=== PATIENT | female | born 1985 | race Caucasian/White ===

== ENCOUNTER 2016-06-27 09:45 | Emergency (ER) | payer OTHER ==
[2016-06-27 10:01] VITALS: BP 128/91; PULSE 106; RESP 16; O2SAT 98
--- NOTE | 2016-06-27 10:08 | ED.REPORT ---
HPI-Rash / Abscess Date of Service Jun 27, 2016 ED Provider: Rachel Palm MD 30 year old female presents to the ER complaining of diffuse hives and itching onset last night around 19:00 while at work. She has lately been on antibiotics to treat a dental infection. Initially she was on a course of amoxicillin for 15 days, followed by a course of penicillin for 10 days, currently /4 finished. Associated symptoms include mild tongue and lip tingling. Patient denies tongue/throat swelling, and difficulty breathing. Symptoms have been treated with Benadryl with no relief. Nursing Notes Stated Complaint: RASH ALL OVER BODY Chief Complaint: Allergic Reaction Nursing Notes Reviewed: Yes Allergies: Coded Allergies: No Known Allergies (Unverified , 06/27/16) Scheduled Prednisone (PredniSONE) 20 Mg Tablet 40 MG PO DAILY 40MG ON 06/28 AND 06/29 General Time Seen by MD: 10:07 Chief Complaint Rash Hx Obtained From: Patient Arrived By: Walk-in Onset Occurred: Yesterday Symptom Duration: Since onset Location: : Generalized Quality: Itching Severity: Current: Moderate Severity: Maximum: Moderate Pertinent Negative: Pt denies other symptoms Similar Sx Previous: No Past Medical History Smoking History Unknown if Ever Smoker Ambulatory Status Independent Review of Systems Review of Systems Note: +Lip/Tongue tingling Ears / Nose / Throat: Denies: Throat swelling, Tongue swelling Respiratory: Denies: Shortness of breath, Wheezing Allergy / Immune: Reports: Allergic reaction, Hives, Itching, Denies: Anaphylaxis Complete sys rev & neg: except as marked. Physical Exam Initial Vital Signs Vital Signs (First) Date Time Temp Pulse Resp B/P Pulse Ox O2 Delivery O2 Flow Rate FiO2 06/27/16 10:01 37.1 106 16 128/91 98 Room Air Initial VS: Reviewed Head / Eyes: Atraumatic, Normocephalic Neck: Supple, Non-tender, Full range of motion Abdomen / GI: Soft, Non-tender, No guarding, No rebound, No distention Extremities: Vascular intact, Neuro intact, No swelling, No tenderness Neurologic: Alert, Oriented, Nonfocal General/Constitutional: Awake, Alert, Well developed, Well nourished Appearance / Presentation: Positive: Obese Skin: Warm, Dry, Intact Color / Condition: Positive: Rash present Rash / Lesion Notes: Generalized hives, worse on the torso. ENT: Airway patent, Mucous membranes moist, Pharynx NL Minor lower lip swelling. No tongue or throat swelling. Respiratory / Chest: Breath sounds NL, Breath sounds = bilat, No respiratory distress, No rales, No rhonchi, No wheezing Cardiovascular: Heart rate NL, Regular rhythm, Heart sounds NL, Peripheral circulation NL Re-Eval/Medical Decision Re-Evaluation/Progress : Time of Eval: 10:12 Re-Evaluation/Progress Note: Discussed physical examination findings and plan to discharge. Patient is amenable to the plan. Return precautions given. All other questions addressed. Counseled Regarding: Diagnosis, Need for follow-up, When/why to return to ED Discharge & Departure Impression: Primary Impression: Acute allergic reaction Disposition: Home Discharge Condition All VS Reviewed: Yes Condition: Stable Patient Instructions: Antibiotic Medication Allergy (DC) Additional Instructions: Take Prednisone for the next 3 days to decrease the allery symptoms. You were given 60mg in the ER and will need 40mg on 06/28 and 06/29. Use Benadryl, 1-2 pills as needed if you are itchy at night or have difficulty sleeping. Use a long acting allery pill, ex:Claritin, zyrtec, allega, daily for the next week. Return to the ER if you experience worsening symptoms, tongue/throat swelling, difficulty breathing, or any other concerning symptoms. NO MORE PENICILLINS FOR YOU! Referrals: Zane Olguin Attestation Portions of this note were transcribed by Brien Wilks. I, Dr. Palm, personally performed the history, physical exam and medical decision-making; I reviewed and confirmed the accuracy of the information in the transcribed note. Signed by: Eugenio Salinas, 06/27/2016 and 10:30 copies to: Zane Olguin Shawna L MD Jun 27, 2016 10:08 BRIEN WILKS Jun 27, 2016 10:19
[2016-06-27] MEDS ORDERED: predniSONE 20 mg Tablet PO ONE (10:20)
[2016-06-27] MEDS ORDERED: PRE20 PO (10:26)
== END 2016-06-27 10:28 | disposition home or self-care (01) ==
LOC: SED 09:45
DX: L50.9 Urticaria, unspecified (principal); L29.9 Pruritus, unspecified; T36.0X5A Adverse effect of penicillins, initial encounter; X58.XXXA Exposure to other specified factors, initial encounter; Y93.89 Activity, other specified; Y92.9 Unspecified place or not applicable; Y99.8 Other external cause status; Z88.0 Allergy status to penicillin

== ENCOUNTER 2016-07-01 09:33 | Emergency (ER) | payer OTHER ==
[~2016-07-01] VITALS: Ht 172.7 cm; Wt 120.0 kg
[~2016-07-01 09:33] MED LIST: PRE20 PO
[2016-07-01 09:48] VITALS: BP 168/116; PULSE 102; RESP 18; O2SAT 97
--- NOTE | 2016-07-01 12:36 | ED.REPORT ---
HPI-Allergic Reaction Date of Service Jul 01, 2016 ED Provider: Katharine Logan History of Present Illness: allergic rx to pcn, took prednisone for 3 days, taking bettye and bendryl, still with hives. mostly on chest and lower back. on no steroids since 06/29 finished 40 mg dose itching is bad. primary care is [facility] at [facility]. Nursing Notes Stated Complaint: ALLERGIC REACTION Chief Complaint: General Complaint Nursing Notes Reviewed: Yes Allergies: Coded Allergies: No Known Allergies (Unverified , 06/27/16) Scheduled Prednisone (PredniSONE) 20 Mg Tablet 40 MG PO DAILY 40MG ON 06/28 AND 06/29 General Time Seen by MD: 12:35 Chief Complaint Rash Hx Obtained From: Patient Past Medical History Past Medical History Denies: Asthma Past Surgical History Reports: Cholecystectomy () Smoking History Current Every Day Smoker (2 cig a week a week for 17 years) Social History Alcohol Use: Denies alcohol use Drug Use: Denies drug use Occupation lives with partner work at [employer] 07/01/2016 Ambulatory Status Independent Review of Systems Basic Review of Systems Cardiovascular: No chest pain, No orthopnea, No parox noct dyspnea, No palpitations : No frequency Musculoskeletal: Full range of motion, Joints NL Hematologic: No bleeding, No bruising Endocrine: No weight gain, No weight loss Psychiatric: Normal thought content Physical Exam Initial Vital Signs Vital Signs (First) Date Time Temp Pulse Resp B/P Pulse Ox O2 Delivery O2 Flow Rate FiO2 07/01/16 09:48 36.3 102 18 168/116 97 Room Air Initial VS: Reviewed, Vital signs normal Head / Eyes: Atraumatic, Normocephalic, PERRL ENT: Mucous membranes moist, Conjunctiva normal, No scleral icterus Neck: Supple, Non-tender, Full range of motion Abdomen / GI: Soft, Non-tender, No guarding, No rebound, No distention Back: No CVA tenderness Lymphatic: No lymphadenopathy Extremities: Vascular intact, Neuro intact, No swelling, No tenderness Neurologic: Alert, Oriented, Nonfocal Psychiatric: Mood/affect normal, Behavior normal, Normal thought content General/Constitutional: Awake, Alert, No acute distress, Well appearing, Well developed, Well hydrated, Well nourished, Cooperative, Not toxic appearing Respiratory / Chest: Atraumatic, Breath sounds NL, Breath sounds = bilat, No respiratory distress Cardiovascular: Heart rate NL, Regular rhythm, Heart sounds NL, No gallop Color / Condition: Positive: Rash present Rash / Lesion Notes: multiple scattered wheals on chest and lower back. nothing in inner thighs. Re-Eval/Medical Decision Med Decision/Clinical Course 30 year old female presents for evualation of rash. No breathing difficulties. No sign of scabies, or cellulitis Discharge & Departure Primary Impression: Acute allergic reaction Encounter type: subsequent encounter Qualified Code: T78.40XD - Allergy, unspecified, subsequent encounter Disposition: Home Patient Instructions: Urticaria (ED) Additional Instructions: You are on all the correct medication. Start doxepin 10 mg at night to help with itching. This medication lasts 24 hours and it may decrease your need to use visteral or benadryl during the day. Start prednisone 30 mg daily for 3 days then 20 mg daily for 3 days the 10 mg daily for 3 days. Please follow with primary care as needed. Stay Cool! Referrals: Zane Olguin (PCP) EDSupervising Provider for APC: Nathan Choi MD copies to: Zane Olguin Sue ARNP Jul 01, 2016 12:36
[2016-07-01 13:40] VITALS: BP 123/73; PULSE 77; RESP 16; O2SAT 97
== END 2016-07-01 13:41 | disposition home or self-care (01) ==
LOC: SED 09:33
DX: T78.40XD Allergy, unspecified, subsequent encounter (principal); Y93.89 Activity, other specified; Y92.89 Other specified places as the place of occurrence of the external cause; Y99.8 Other external cause status; F17.200 Nicotine dependence, unspecified, uncomplicated